=== PATIENT | female | born 1975 | race Hispanic/Latino ===

== ENCOUNTER 2019-11-08 03:16 | Emergency (ER) | payer SELFPAY ==
[2019-11-08] MEDS ORDERED: MAG HYDROX/AL HYDROX/SIMETH ES 30 ML SUSP UDCUP ONE (03:59)
[2019-11-08] MEDS ORDERED: LIDOCAINE HCL 2% VISCOUS 15 ML UDCUP ONE (03:59)
[2019-11-08] MEDS ORDERED: DICYCLOMINE HCL 10 MG/5 ML ML PO ONE (04:00)
[2019-11-08] MEDS ORDERED: PANTOPRAZOLE SODIUM 40 MG TABLET.DR ONE (04:00)
[2019-11-08] MEDS ORDERED: FAMOTIDINE 20MG TAB 20 MG TAB ONE (04:00)
== END 2019-11-08 04:37 | disposition home or self-care (01) ==
LOC: EDH 03:16
DX: K29.00 Acute gastritis without bleeding (principal)

== ENCOUNTER 2019-11-09 17:49 | Emergency (ER) | payer SELFPAY ==
[2019-11-09] MEDS ORDERED: SODIUM CHLORIDE 0.9% 1000ML 1,000 ML IV ONE (17:50)
[2019-11-09] MEDS ORDERED: MORPHINE SULFATE 4 MG/1ML SYG ONE ×2 (18:12→22:00)
[2019-11-09] MEDS ORDERED: ONDANSETRON HCL 4 MG/2 ML VIAL ONE ×2 (18:12→22:00)
[2019-11-09 18:34] LABS: BASOPHILS % (AUTO) 0.3 % (0.0-5.0); EOSINOPHILS % (AUTO) 0.1 % (0.0-8.0); HEMATOCRIT 35.9 % (36-48); LYMPHOCYTES % (AUTO) 10.5 % (21.0-51.0); MEAN CORPUSCULAR HEMOGLOBIN 27.4 pg (27.0-33.0); MEAN CORPUSCULAR HGB CONC 33.7 g/dL (32.0-36.0); MEAN CORPUSCULAR VOLUME 81.4 fL (79-99); MONOCYTES % (AUTO) 7.1 % (3.0-13.0); NEUTROPHILS % (AUTO) 81.5 % (40.0-77.0); PLATELET COUNT (AUTO) 391 K/uL (130-400); RED BLOOD CELL COUNT(AUTO) 4.41 MIL/uL (4.00-5.50); RED CELL DISTRIBUTION WIDTH 14.5 % (11.0-15.5); WHITE BLOOD COUNT (AUTO) 7.9 K/uL (4.8-10.8)
[2019-11-09 18:37] LABS: CREATININE 0.7 mg/dL (0.5-1.5); POTASSIUM 3.5 mmol/L (3.5-5.1)
[2019-11-09 18:42] LABS: ALBUMIN 3.9 g/dL (3.5-5.0); BILIRUBIN,TOTAL 3.3 mg/dL (0.2-1.0); TOTAL PROTEIN, SERUM 8.2 g/dL (6.0-8.3)
[2019-11-09 19:48] LABS: APPEARANCE,URINE Clear (CLEAR); BILIRUBIN,URINE Negative (NEGATIVE); COLOR,URINE Yellow (YELLOW); GLUCOSE, URINE (UA) Negative (NEGATIVE); KETONES,URINE Trace mg/dL (NEGATIVE); LEUKOCYTE ESTERASE ,URINE Negative (NEGATIVE); NITRATE,URINE Negative (NEGATIVE); OCCULT BLOOD,URINE Negative (NEGATIVE); PROTEIN,URINE Negative (NEGATIVE)
[2019-11-09] MEDS ORDERED: ZOSYN 3.375GM+NS 50ML 50 ML IV ONE (21:53)
== END 2019-11-09 23:54 | disposition short-term general hospital (02) ==
LOC: EDH 17:49
DX: K81.0 Acute cholecystitis (principal); R11.2 Nausea with vomiting, unspecified
CPT/HCPCS: 36415; 76705; 80053; 81003; 83690; 85025; 96361; 96365; 96375; 96376; 99285; J2270 ×2; J2405 ×2; J2543; J7030